=== PATIENT | female | born 1940 | race Caucasian/White ===

== ENCOUNTER 2017-01-08 10:18 | Emergency (ER) | payer MEDICARE ==
[~2017-01-08] VITALS: Ht 149.9 cm; Wt 80.0 kg
[2017-01-08 10:19] VITALS: BP 178/71; PULSE 95; RESP 18; TEMP 98.6; O2SAT 100
[2017-01-08] MEDS ORDERED: SODIUM CHLORIDE 0.9% FLUSH 10 ML FLUSH IVF PRN (11:15)
[2017-01-08] MEDS ORDERED: PANTOPRAZOLE INJ 80 MG in SODIUM CHLORIDE 0.9% INJ 35 ML IV ONE (11:15)
[2017-01-08] MEDS ORDERED: PANTOPRAZOLE INJ 80 MG in SODIUM CHLORIDE 0.9% INJ 100 ML IV SCH (11:15)
[2017-01-08] MEDS ORDERED: SODIUM CHLOR 0.9% 1000 ML INJ 1,000 ML IV SCH (11:15)
--- NOTE | 2017-01-08 11:21 | PD ---
HPI Chief Complaint: GI Complaint Time Seen by Provider: 11:02 Travel History International Travel<30 days: No Contact w/Intl Traveler<30days: No Traveled to known affect area: No History of Present Illness HPI 76-year-old female complains of abdominal pain, nausea vomiting and diarrhea and bloody stool. Patient states that she started having nausea vomiting abdominal pain after eating soup yesterday evening. Patient states that the abdominal pain is severe cramping pain diffuse over the abdomen. Patient denies any pain radiation. Patient states that she started having diarrhea subsequently. Patient states that abdominal pain was better after diarrhea. Patient states that she started passing blood and blood clots per rectum subsequently since last night. Patient has multiple bouts of bloody stool since last night. Patient states that she has mild abdominal cramping today. Patient denies any earache. Patient denies any chest pain or shortness of breath. Patient denies any fever chills. Patient denies any back pain. Patient has history hypertension, diabetes. Patient takes aspirin 81 mg recently. Patient status post cholecystectomy and hysterectomy and aortic aneurysm repair. Patient has history of CVA in the past. PFSH Past Medical History Hx Anticoagulant Therapy: Yes (ASA) Cardiovascular Problems: Yes (AORTIC ANEURYSM) Cerebrovascular Accident: Yes Diabetes: Yes Patient Takes Glucophage: Yes Diminished Hearing: Yes Tetanus Vaccination: Unknown Influenza Vaccination: Yes ?: Not Past Surgical History Cardiac Surgery: Yes (ANUERYSM, CABG) Cholecystectomy: Yes Hysterectomy: Yes Social History Alcohol Use: Yes (wine occasionally ) Tobacco Use: No Substance Use: No Allergies-Medications (Allergen,Severity, Reaction): Coded Allergies: No Known Allergies (Unverified Allergy, Unknown, 01/08/17) Review of Systems General / Constitutional: No: Fever Eyes: No: Visual changes HENT: No: Headaches Cardiovascular: No: Chest Pain or Discomfort Respiratory: No: Shortness of Breath Gastrointestinal: Positive: Nausea, Vomiting, Diarrhea, Abdominal Pain, Hematochezia Genitourinary: No: Dysuria Musculoskeletal: No: Pain Skin: No Rash Neurologic: No: Weakness Psychiatric: No: Depression Endocrine: No: Polydipsia Hematologic/Lymphatic: No: Easy Bruising Physical Exam Narrative GENERAL: Well-nourished, well-developed patient. SKIN: Focused skin assessment warm/dry. HEAD: Normocephalic. EYES: No scleral icterus. No injection or drainage. NECK: Supple, trachea midline. No JVD or lymphadenopathy. CARDIOVASCULAR: Regular rate and rhythm without murmurs, gallops, or rubs. RESPIRATORY: Breath sounds equal bilaterally. No accessory muscle use. GASTROINTESTINAL: Abdomen soft, non-tender, nondistended. MUSCULOSKELETAL: No cyanosis, or edema. BACK: Nontender without obvious deformity. No CVA tenderness. Neurologic exam normal. Data Data Last Documented VS Vital Signs Date Time Temp Pulse Resp B/P (MAP) Pulse Ox O2 Delivery O2 Flow Rate FiO2 01/08/17 12:00 84 18 159/77 (104) 97 Room Air 01/08/17 10:19 98.6 Orders Orders Complete Blood Count With Diff (01/08/17 11:15) Comprehensive Metabolic Panel (01/08/17 11:15) Lipase (01/08/17 11:15) Prothrombin Time / Inr (Pt) (01/08/17 11:15) Act Partial Throm Time (Ptt) (01/08/17 11:15) Urinalysis - C+S If Indicated (01/08/17 11:15) Type And Screen (01/08/17 11:15) Ecg Monitoring (01/08/17 11:15) Iv Access Insert/Monitor (01/08/17 11:15) Oximetry (01/08/17 11:15) Sodium Chlor 0.9% 1000 Ml Inj (Ns 1000 M (01/08/17 11:15) Sodium Chloride 0.9% Flush (Ns Flush) (01/08/17 11:15) Sodium Chloride 0.9... W/Pantoprazole In (01/08/17 11:15) Sodium Chloride 0.9... W/Pantoprazole In (01/08/17 11:15) Urine Culture (01/08/17 11:50) Ceftriaxone Inj (Rocephin Inj) (01/08/17 13:00) Labs Laboratory Tests Test 01/08/17 11:23 01/08/17 11:50 White Blood Count 10.6 TH/MM3 Red Blood Count 4.68 MIL/MM3 Hemoglobin 13.1 GM/DL Hematocrit 39.9 % Mean Corpuscular Volume 85.2 FL Mean Corpuscular Hemoglobin 27.9 PG Mean Corpuscular Hemoglobin Concent 32.8 % Red Cell Distribution Width 17.0 % Platelet Count 251 TH/MM3 Mean Platelet Volume 8.1 FL Neutrophils (%) (Auto) 77.1 % Lymphocytes (%) (Auto) 14.1 % Monocytes (%) (Auto) 7.6 % Eosinophils (%) (Auto) 0.5 % Basophils (%) (Auto) 0.7 % Neutrophils # (Auto) 8.2 TH/MM3 Lymphocytes # (Auto) 1.5 TH/MM3 Monocytes # (Auto) 0.8 TH/MM3 Eosinophils # (Auto) 0.1 TH/MM3 Basophils # (Auto) 0.1 TH/MM3 CBC Comment DIFF FINAL Differential Comment Prothrombin Time 10.9 SEC Prothromb Time International Ratio 1.0 RATIO Activated Partial Thromboplast Time 25.0 SEC Blood Urea Nitrogen 20 MG/DL Creatinine 1.18 MG/DL Random Glucose 151 MG/DL Total Protein 7.6 GM/DL Albumin 3.8 GM/DL Calcium Level 9.4 MG/DL Alkaline Phosphatase 86 U/L Aspartate Amino Transf (AST/SGOT) 26 U/L Alanine Aminotransferase (ALT/SGPT) 24 U/L Total Bilirubin 0.5 MG/DL Sodium Level 137 MEQ/L Potassium Level 3.6 MEQ/L Chloride Level 101 MEQ/L Carbon Dioxide Level 25.1 MEQ/L Anion Gap 11 MEQ/L Estimat Glomerular Filtration Rate 45 ML/MIN Lipase 85 U/L Urine Color LIGHT-YELLOW Urine Turbidity CLEAR Urine pH 6.5 Urine Specific [place] 1.006 Urine Protein NEG mg/dL Urine Glucose (UA) NEG mg/dL Urine Ketones NEG mg/dL Urine Occult Blood TRACE Urine Nitrite NEG Urine Bilirubin NEG Urine Urobilinogen LESS THAN 2.0 MG/DL Urine Leukocyte Esterase MOD Urine RBC 1 /hpf Urine WBC 12 /hpf Urine WBC Clumps OCC Urine Squamous Epithelial Cells <1 /hpf Urine Bacteria FEW /hpf Urine Hyaline Casts 7 /lpf Urine Granular Casts 3 /lpf Microscopic Urinalysis Comment CULTURE INDICATED MDM Medical Decision Making Medical Screen Exam Complete: Yes Emergency Medical Condition: Yes Interpretation(s) 12:45 PM. CBC with hemoglobin 13.1 hematocrit 39.9. WBC 10.6 with 77 neutrophil. BUN 20. Creatinine 1.18. GFR 45. UA positive WBC and bacteria. Differential Diagnosis Differential diagnosis including gastroenteritis, upper and lower GI bleed, colitis, hemorrhoidal bleed, AV malformation. Narrative Course 76-year-old female with nausea vomiting diarrhea and bloody stool since last night. Patient also has severe abdominal pain lasting but abdominal pain is better today. Normal saline solution 1 25 cc an hour. Protonix bolus and drip started. 1334 PM. Patient was advised to be admitted for workup for GI bleed. Patient refuses admission. Patient wants to go home. Bactrim DS one tablet by mouth given. Diagnosis Primary Impression: GI bleed Qualified Codes: K92.2 - Gastrointestinal hemorrhage, unspecified Additional Impressions: Gastroenteritis UTI (urinary tract infection) Qualified Codes: N30.00 - Acute cystitis without hematuria Patient Instructions: General Instructions Additional Instructions: Take medications as directed. Follow-up with personal physician gastrolysis. Return immediately if persistent rectal bleeding or worsening condition. Med/Other Pt SpecificInfo: Prescription(s) given Scripts Pantoprazole (Protonix) 20 Mg Tab 20 MG PO DAILY for Reflux, #30 TAB 0 Refills Prov: Isaac Mcbride MD 01/08/17 Sulfamethoxazole-Trimethoprim (Bactrim DS) 800-160 Mg Tab 1 TAB PO BID for Infection, #6 TAB 0 Refills Prov: Isaac Mcbride MD 01/08/17 Disposition: 01 DISCHARGE HOME Condition: Stable Isaac Mcbried MD Jan 08, 2017 11:21
[2017-01-08 11:34] VITALS: O2SAT 100
[2017-01-08 12:00] VITALS: BP 159/77; PULSE 84; RESP 18; O2SAT 97
[2017-01-08 12:01] LABS: AUTOMATED NEUTROPHIL # 8.2 TH/MM3 (1.8-7.7); BASOPHIL # 0.1 TH/MM3 (0-0.2); BASOPHIL % 0.7 % (0.0-2.0); EOSINOPHIL # 0.1 TH/MM3 (0-0.4); EOSINOPHIL % 0.5 % (0.0-4.0); HEMATOCRIT 39.9 % (35.0-46.0); HEMO FLAGS DIFF FINAL; LYMPH % 14.1 % (9.0-44.0); LYMPHOCYTE # 1.5 TH/MM3 (1.0-4.8); MEAN CELL VOLUME 85.2 FL (80.0-100.0); MEAN CORPUSCULAR HEMOGLOBIN 27.9 PG (27.0-34.0); MEAN CORPUSCULAR HGB CONC 32.8 % (32.0-36.0); MONO % 7.6 % (0.0-8.0); NEUT % 77.1 % (16.0-70.0); PLATELET COUNT 251 TH/MM3 (150-450); RED BLOOD COUNT 4.68 MIL/MM3 (4.00-5.30); WHITE BLOOD COUNT 10.6 TH/MM3 (4.0-11.0)
[2017-01-08 12:10] LABS: PROTHROMBIN TIME - PATIENT 10.9 SEC (9.8-11.6)
[2017-01-08 12:18] LABS: ANION GAP 11 MEQ/L (5-15); AST (GOT) 26 U/L (15-37); BICARBONATE 25.1 MEQ/L (21.0-32.0); BLOOD UREA NITROGEN 20 MG/DL (7-18); CHLORIDE 101 MEQ/L (98-107); GLOMERULAR FILTRATION RATE 45 ML/MIN (>89); POTASSIUM 3.6 MEQ/L (3.5-5.1); SODIUM (NA) 137 MEQ/L (136-145)
[2017-01-08 12:19] LABS: ALT (GPT) 24 U/L (10-53)
[2017-01-08 12:22] LABS: ALKALINE PHOSPHATASE 86 U/L (45-117); TOTAL BILIRUBIN ADULT 0.5 MG/DL (0.2-1.0)
[2017-01-08 12:27] LABS: BACTERIA, URINE FEW /hpf; BLOOD, URINE TRACE (NEG); COMMENT (UR) CULTURE INDICATED; CULTURE IF INDICATED CULTURE INDICATED; GLUCOSE,URINE NEG (NEG); GRANULAR CAST, URINE 3 /lpf; HYALINE CAST, URINE 7 /lpf (RARE); KETONE, URINE NEG (NEG); NITRITE,URINE NEG (NEG); PH, URINE 6.5 (5.0-8.5); SQUAMOUS EPITHELIAL CELL URINE <1 /hpf (0-5); URINE COLOR LIGHT-YELLOW (YELLW/STRAW)
[2017-01-08] MEDS ORDERED: cefTRIAXone INJ 1,000 MG in SODIUM CHLORIDE 0.9% INJ 100 ML IV ONE (13:00)
[2017-01-08] MEDS ORDERED: PANT20 PO (13:37)
[2017-01-08] MEDS ORDERED: BACT800T5 PO (13:37)
[2017-01-08] MEDS ORDERED: SULFAMETHOXAZOLE-TRIMETHOPRIM DS 800-160 MG TAB PO ONE (13:45)
== END 2017-01-08 14:51 | disposition home or self-care (01) ==
LOC: NEPE 10:18
DX: K92.2 Gastrointestinal hemorrhage, unspecified (principal); K52.9 Noninfective gastroenteritis and colitis, unspecified; N30.00 Acute cystitis without hematuria; B96.20 Unspecified Escherichia coli [E. coli] as the cause of diseases classified elsewhere; E11.9 Type 2 diabetes mellitus without complications; I10 Essential (primary) hypertension; Z79.84 Long term (current) use of oral hypoglycemic drugs; Z86.73 Personal history of transient ischemic attack (TIA), and cerebral infarction without residual deficits
CPT/HCPCS: 80053; 81001; 83690; 85025; 85610; 85730; 86850; 86900; 86901; 87077; 87086; 87186; 96374; 99284; C9113; J7030